=== PATIENT | female | born 1960 | race Caucasian/White ===

== ENCOUNTER 2024-04-30 12:06 | Outpatient (CLI) | payer OTHER, SELFPAY ==
--- NOTE | ~2024-04-30 | XR_ITS ---
AP and lateral views of the left hip Clinical history: Pain Findings: No acute fracture or dislocation is seen. Osseous alignment is anatomic. Left hip joint is preserved. Soft tissues are unremarkable. Impression: No significant abnormality is seen. Reviewed, dictated and finalized at location . Impression: No significant abnormality is seen.
--- NOTE | ~2024-04-30 | XR_ITS ---
Lumbosacral Spine: AP and lateral views Clinical History: Pain Findings: The normal lordotic curve is maintained. The vertebral bodies and posterior elements are i ntact. There are mild degenerative disc changes.. There is moderate to advanced facet arthropathy fro m L3 through S1. The sacroiliac joints are normally outlined. Impression: Moderate degenerative spondylosis overall, as detailed above. Reviewed, dictated and finalized at location M. Impression: Moderate degenerative spondylosis overall, as detailed above.
== END 2024-04-30 12:07 ==
PROVIDERS: PCP Family Medicine; Visit Provider Family Medicine
DX: M25.552 Pain in left hip (principal); M54.9 Dorsalgia, unspecified; M43.06 Spondylolysis, lumbar region
CPT/HCPCS: 72100; 73502